=== PATIENT | female | born 1970 | race Caucasian/White ===

== ENCOUNTER → 2018-11-15 | Outpatient (CLI) | payer OTHER ==
[~2018-11-15] MED LIST: IOPAMIDOL 370 MG/ML 200 ML INFUS..BTL INJ ONE; SODIUM CHLORIDE 0.9% 50ML 50 ML ONE
--- NOTE | 2018-11-15 11:42 | Diagnostic Imaging Report ---
EXAM: CT Chest, Abdomen and Pelvis WITH contrast INDICATION: ^MALIG NEOP UNSPC'D SITE RT BREAST COMPARISON: CT chest abdomen and pelvis 10/05/2017. TECHNIQUE: Chest, abdomen and pelvis were scanned utilizing a multidetector helical scanner from the lung apex to the pubic symphysis after administration of IV contrast. Coronal and sagittal reformations were obtained. Dual liver protocol was performed. Scan was performed during arterial and portal venous phase. IV CONTRAST: 100 mL of Isovue 370 ORAL CONTRAST: Water COMPLICATIONS: None RADIATION DOSE: Total DLP: 490.41 mGy*cm Estimated effective dose: (DLP x 0.015 x size factor) mSv CTDIvol has been reviewed. It is below the limits set by the Radiation Protocol Committee (RPC). FINDINGS: LINES and TUBES: None. LUNGS AND AIRWAYS: * Wedge resection of the lateral right upper lobe (series 5, image 29). * 2 mm pleural-based nodularity in the anterior right upper lobe (series 5, image 32). Unchanged. * Mild pleural parenchymal scarring/nodularity in the posterior left upper lobe abutting the fissure (series 5, image 25). Unchanged. The lungs are otherwise unremarkable. Airways are normal. PLEURA: The pleural spaces are clear. HEART AND MEDIASTINUM: The thyroid gland is normal. No mediastinal or hilar lymphadenopathy. Stable prominent right axillary lymph node measuring 1.1 cm (series 4, image 21). Calcific density along the azygos arch posteriorly is nonspecific and may represent calcified lymph nodes, unchanged. The heart is normal in size. There is no pericardial effusion. HEPATOBILIARY: Tiny hypodensity in the posterior right hepatic lobe (series 4, image 109), stable. There is mild intra- and extra- hepatic biliary dilation likely post cholecystectomy resevoir effect. GALLBLADDER: Status post cholecystectomy. SPLEEN: No splenomegaly. PANCREAS: No focal masses or ductal dilatation. ADRENALS: No adrenal nodules KIDNEYS/URETERS: Kidneys enhance symmetrically. No hydronephrosis. No cystic or solid mass lesions. No stones. Partially duplicated left renal collecting system. GI TRACT: No abnormal distention, wall thickening, or evidence of bowel obstruction. There is a large volume of stool within the colon. The appendix is not visualized. PELVIC ORGANS/BLADDER: Status post hysterectomy. LYMPH NODES: No lymphadenopathy. VESSELS: Unremarkable. PERITONEUM / RETROPERITONEUM: No free air or fluid. BONES: Unremarkable. SOFT TISSUES: Status post bilateral mastectomy. IMPRESSION: 1. Status post bilateral mastectomy with no evidence of local recurrence. Stable mildly prominent right axillary lymph node. 2. No metastatic disease in the chest, abdomen, or pelvis. 3. Stable postoperative changes in the right upper lobe. Signed by: Dr. Leoncio Palacios M.D. on 11/15/2018 11:39 AM
== END ==
LOC: CT 07:34
PROVIDERS: ATTEND Internal Medicine Hematology & Oncology
DX: C50.911 Malignant neoplasm of unspecified site of right female breast (principal)
CPT/HCPCS: 71260; 74177; Q9967